=== PATIENT | male | born 1950 | race Caucasian/White ===

== ENCOUNTER 2017-08-29 08:41 | Outpatient (RCR) | payer MEDICARE, BC | END 2017-08-30 | LOC: PT 08:41 | PROVIDERS: ATTEND Physical Medicine & Rehabilitation | DX: M25.332 Other instability, left wrist (principal); M25.532 Pain in left wrist; M25.632 Stiffness of left wrist, not elsewhere classified; M25.512 Pain in left shoulder; M25.612 Stiffness of left shoulder, not elsewhere classified; R53.1 Weakness | CPT/HCPCS: 97022; 97110 ×3; 97162; 97165; G8978; G8979; G8987; G8988 ==

== ENCOUNTER 2017-09-25 10:00 | Outpatient (RCR) | payer MEDICARE, BC | END 2017-09-30 | LOC: OT 10:00 | PROVIDERS: ATTEND Surgery Surgery of the Hand | DX: M25.332 Other instability, left wrist (principal); M25.532 Pain in left wrist; M25.632 Stiffness of left wrist, not elsewhere classified; M25.512 Pain in left shoulder; M25.612 Stiffness of left shoulder, not elsewhere classified; R53.1 Weakness | CPT/HCPCS: 97022 ×8; 97110 ×15; 97139; G8979; G8980 ==

== ENCOUNTER 2017-10-16 09:58 | Outpatient (RCR) | payer MEDICARE, BC | END 2017-10-31 | LOC: OT 09:58 | PROVIDERS: ATTEND Surgery Surgery of the Hand | DX: M25.332 Other instability, left wrist (principal) | CPT/HCPCS: 97022 ×5; 97110 ×5; 97139; 97530 ×4; G8987; G8988 ×2; G8989 ==